=== PATIENT | female | born 1975 | race Caucasian/White ===

== ENCOUNTER 2018-05-16 18:49 | Emergency (ER) | payer MEDICAID ==
[~2018-05-16] VITALS: Ht 162.6 cm; Wt 56.8 kg
[2018-05-16 18:52] VITALS: BP 154/87
[2018-05-16] MEDS ORDERED: PREN1.4T2 PO (18:54)
[2018-05-16] MEDS ORDERED: BUPIVACAINE HCL/PF 0.5% 30 ML VIAL SQ ONE (20:45)
[2018-05-16] MEDS ORDERED: MUPIROCIN CALCIUM 2% 22 GM OINTMENT TP ONE (20:45)
== END 2018-05-16 21:47 | disposition home or self-care (01) ==
LOC: EMS 18:50
DX: L03.032 Cellulitis of left toe (principal); K21.9 Gastro-esophageal reflux disease without esophagitis
CPT/HCPCS: 10060; 99283; J3490